=== PATIENT | female | born 1945 | race American Indian/Alaskan Native ===

== ENCOUNTER → 2017-01-27 | Outpatient (CLI) | payer OTHER | LOC: CIMAGING 12:36 | PROVIDERS: ATTEND Family Medicine | DX: Z12.39 Encounter for other screening for malignant neoplasm of breast (principal); R92.2 Inconclusive mammogram | CPT/HCPCS: G0206 ==

== ENCOUNTER 2017-03-06 18:13 | Emergency (ER) | payer OTHER ==
--- NOTE | 2017-03-06 18:30 | CPEKG ---
Heart Rate: 81 RR Interval: 741 QRSD Interval: 72 QT Interval: 400 QTC Interval: 465 QRS [place]: 66 T Wave [place]: 75 EKG Severity - ABNORMAL ECG - EKG Impression: ATRIAL FIBRILLATION, V-RATE 64-101 EKG Impression: LOW VOLTAGE IN FRONTAL LEADS EKG Impression: NONSPECIFIC T ABNORMALITIES, LATERAL LEADS Electronically Signed By: Jailyn Sandhu 06-Mar-2017 22:39:06
[2017-03-06 19:15] LABS: % IMMATURE GRANULYOCYTES 0.6 % (0.0-1.1); ABSOLUTE IMMATURE GRANULOCYTES 0.03 10^3/uL (0.00-0.10); ADD DIFF? NO; ADD MORPH? NO; ADD SCAN? NO; ATYPICAL LYMPHOCYTE FLAG 20 (0-99); FRAGMENT RBC FLAG 0 (0-99); HEMATOCRIT 40.6 % (38.0-47.0); HEMOGLOBIN 14.2 g/dL (12.6-16.3); LEFT SHIFT FLG 0 (0-99); LIPEMIA HEMOLYSIS FLAG 90 (0-99); MEAN CELL HEMOGLOBIN 36.3 pg (27.9-34.1); MEAN CELL VOLUME 103.8 fL (81.5-99.8); MEAN PLATELET VOLUME 10.2 fL (8.7-11.7); PLATELET CLUMPS FLAG 0 (0-99); PLATELET COUNT 158 10^3/uL (150-400); RED BLOOD CELL COUNT 3.91 10^6/uL (4.18-5.33)
[2017-03-06 19:32] LABS: ANION GAP 14 mEq/L (8-16); CALCIUM 9.5 mg/dL (8.5-10.4); CARBON DIOXIDE 25 mEq/l (22-31); CHLORIDE 89 mEq/L (97-110); CREATININE 1.2 mg/dL (0.6-1.0); GLOMERULAR FILTRATION RATE 44; GLUCOSE 103 mg/dL (70-100); POTASSIUM 4.5 mEq/L (3.5-5.2); SODIUM 128 mEq/L (134-144)
--- NOTE | 2017-03-06 19:32 | EDPHY ---
H & P Stated Complaint: AIR HUNGER Time Seen by Provider: 03/06/17 18:33 HPI/ROS: CHIEF COMPLAINT: Shortness of breath and swelling History by patient HISTORY OF PRESENT ILLNESS: 71-year-old woman with a history of COPD and pulmonary hypertension presents complaining of 1-2 weeks of increasing leg swelling and increasing shortness of breath requiring greater oxygen use at home. Patient states that she began seen a new plastic surgery technician about 3 weeks ago who started her on prednisone in a new inhaler that she can't remember the name of in that seem to make her worse. She saw him again and follow-up and he told her to stop the prednisone however she continues to have worsening trouble breathing and increased leg swelling. She is now using 3 L of oxygen when she normally uses to but this is not helping her feel better. This morning she was feeling very poor and she took her blood pressure at home and it was systolic of 84. At this time she did not feel her heart racing or have any chest pain. She has had no chest pain with any of these episodes. She denies any fever, chills, cough or nausea or vomiting. She said she tried to have an evaluation of her heart with a stress test over a year ago when she was having cataract surgery but she could not tolerate the stress test and had a syncopal episode with a injected a medicine related to that. Patient quit smoking 7 years ago. She has no prior history of atrial fibrillation REVIEW OF SYSTEMS: As in HPI, and all other systems reviewed and are negative Source: Patient - Personal History Current Tetanus/Diphtheria Vaccine: Unsure - Medical/Surgical History Hx Asthma: No Hx Chronic Respiratory Disease: Yes Hx Diabetes: No Hx Cardiac Disease: No Hx Renal Disease: No Hx Cirrhosis: No Hx Alcoholism: No Hx HIV/AIDS: No Hx Splenectomy or Spleen Trauma: No Other PMH: THRYOID - Social History Smoking Status: Current every day smoker - Physical Exam Exam: General Appearance: Alert, chronically ill-appearing. Eyes: Pupils equal and round no pallor or injection. ENT, Mouth: Mucous membranes moist. Respiratory: Normal, effort, There are no retractions, lungs with scattered crackles Cardiovascular: Irregular rate and rhythm. S1, S2, no murmurs, gallops, rubs appreciated Gastrointestinal: Abdomen is soft and nontender, no masses, bowel sounds normal. Neurological: Awake, alert and oriented x 3, no pronator drift, normal gait, no pronator drift Skin: Warm and dry, no rashes. Musculoskeletal: Neck is supple nontender. Extremities are symmetrical, full range of motion. Bilateral 2+ pitting edema to the knees, DP and PT pulses 2+ and equal bilaterally Psychiatric: Patient has normal affect, there is no agitation. Constitutional: Initial Vital Signs O2 Sat (%) 95 03/06/17 18:34 O2 Delivery Mode Nasal Cannula O2 (L/minute) 2 Allergies/Adverse Reactions: aspirin Allergy (Verified 03/06/17 19:15) NSAIDS (Non-Steroidal Anti-Inflamma Allergy (Verified 03/06/17 19:14) APOXY RESIN Allergy (Uncoded 03/06/17 19:14) BLUE DYE Allergy (Uncoded 03/06/17 19:16) HCTZ Allergy (Uncoded 03/06/17 19:15) Home Medications: Medication Instructions Recorded Atenolol 03/06/17 BENADRYL 03/06/17 Klor Packets 20 meq (*) 03/06/17 Lasix 20 MG (*) 03/06/17 Losartan Potassium 03/06/17 Qvar 40 (*) 03/06/17 Synthroid 100 mcg (*) 03/06/17 Tylenol 03/06/17 VITAMIN D 03/06/17 Xopenex 03/06/17 Xopenex Hfa Inhaler (*) 03/06/17 Medical Decision Making - Diagnostics Imaging Results: Imaging Impressions Chest X-Ray 03/06/17 18:34 Impression: No evidence for acute cardiopulmonary abnormality. Stable chronic findings, as above. Imaging: I viewed and interpreted images myself ED Course/Re-evaluation: 71-year-old woman with a history of COPD and pulmonary hypertension presents in new onset atrial fibrillation with evidence of right sided heart failure. EKG showed new onset AFib. First troponin was negative. Chest x-ray showed no evidence of pneumonia or left-sided heart failure. Labs were notable for low sodium, elevated creatinine and elevated BNP. I was concerned about the possibility of pulmonary embolism with her new AFib and right-sided heart failure and increased oxygen requirement so a D-dimer test was done however this was negative. Patient's atrial fibrillation was rate controlled but I was concerned that her episode of hypotension at home it may have been related to rapid AFib. Given her new renal failure, hyponatremia and worsening right-sided heart failure patient be admitted for further evaluation treatment. The patient has been seen by Dr. Rashid, auto porter at [facility] in the past however there were no beds available at [facility] and the patient sees Dr. dickerson, plastic surgery technician in [place] so she was transferred to [facility]. I discussed the case with Dr. Riley who accepts the patient in transfer. - Data Points Laboratory Results: Laboratory Results 03/06/17 19:10 03/06/17 19:10 03/06/17 03/06/17 03/06/17 19:10 19:10 19:10 WBC 5.29 10^3/uL 10^3/uL (3.80-9.50) RBC 3.91 10^6/uL L 10^6/uL (4.18-5.33) Hgb 14.2 g/dL g/dL (12.6-16.3) Hct 40.6 % % (38.0-47.0) MCV 103.8 fL H fL (81.5-99.8) MCH 36.3 pg H pg (27.9-34.1) MCHC 35.0 g/dL g/dL (32.4-36.7) RDW 13.0 % % (11.5-15.2) Plt Count 158 10^3/uL 10^3/uL (150-400) MPV 10.2 fL fL (8.7-11.7) Neut % (Auto) 66.2 % % (39.3-74.2) Lymph % (Auto) 14.0 % L % (15.0-45.0) Tift % (Auto) 15.7 % H % (4.5-13.0) Eos % (Auto) 2.6 % % (0.6-7.6) Baso % (Auto) 0.9 % % (0.3-1.7) Nucleat RBC Rel Count 0.0 % % (0.0-0.2) Absolute Neuts (auto) 3.50 10^3/uL 10^3/uL (1.70-6.50) Absolute Lymphs (auto) 0.74 10^3/uL L 10^3/uL (1.00-3.00) Absolute Monos (auto) 0.83 10^3/uL H 10^3/uL (0.30-0.80) Absolute Eos (auto) 0.14 10^3/uL 10^3/uL (0.03-0.40) Absolute Basos (auto) 0.05 10^3/uL 10^3/uL (0.02-0.10) Absolute Nucleated RBC 0.00 10^3/uL 10^3/uL (0-0.01) Immature Gran % 0.6 % % (0.0-1.1) Immature Gran # 0.03 10^3/uL 10^3/uL (0.00-0.10) D-Dimer < 0.27 ug/mLFEU ug/mLFEU (0.00-0.50) Sodium 128 mEq/L L mEq/L (134-144) Potassium 4.5 mEq/L mEq/L (3.5-5.2) Chloride 89 mEq/L L mEq/L (97-110) Carbon Dioxide 25 mEq/l mEq/l (22-31) Anion Gap 14 mEq/L mEq/L (8-16) BUN 21 mg/dL mg/dL (7-23) Creatinine 1.2 mg/dL H mg/dL (0.6-1.0) Estimated GFR 44 Glucose 103 mg/dL H mg/dL (70-100) Calcium 9.5 mg/dL mg/dL (8.5-10.4) Troponin I < 0.012 ng/mL ng/mL (0-0.034) NT-Pro-B Natriuret Pep 2390 pg/mL H pg/mL (0-125) Departure - Departure Disposition: [facility] Clinical Impression: Atrial fibrillation with controlled ventricular response, Hyponatremia, Right- sided congestive heart failure Condition: Fair Referrals: Vika Friedman MD [Primary Care Provider] - As per Instructions
[2017-03-06 19:38] LABS: TROPONIN I < 0.012 ng/mL (0-0.034)
[2017-03-06] MEDS ORDERED: LEVALBUTEROL 0.63 MG/3 ML DEYVIAL ONE (21:00)
[2017-03-06] MEDS ORDERED: LEVALBUTEROL 0.63 MG/3 ML DEYVIAL IH ONE (21:10)
[2017-03-06 21:37] VITALS: BP 127/85; TEMP 98.4; O2SAT 94
[2017-03-06 22:14] VITALS: PULSE 76; RESP 92
== END 2017-03-06 23:02 | disposition short-term general hospital (02) ==
LOC: CED 18:13
DX: I48.91 Unspecified atrial fibrillation (principal); I50.9 Heart failure, unspecified; E87.1 Hypo-osmolality and hyponatremia; F17.200 Nicotine dependence, unspecified, uncomplicated
CPT/HCPCS: 71020-PO; 80048-PO; 83880-PO; 84484-PO; 85025-PO; 85378-PO